=== PATIENT | male | born 1990 | race Caucasian/White ===

== ENCOUNTER 2019-10-13 19:12 | Emergency (ER) | payer OTHER, SELFPAY ==
[2019-10-13 19:15] VITALS: BP 145/85; RESP 18; TEMP 36.6; O2SAT 99; BMI 23.4
--- NOTE | 2019-10-13 19:26 | DI.RAD.S_ITS ---
PROCEDURE: XR FINGER RT MIN 2V INDICATIONS: crushed and lacerated finger with a steel bar TECHNIQUE: AP hand, 2 views of the right second finger(s) acquired. COMPARISON: None. FINDINGS: Bones: No fractures or dislocations. No suspicious bony lesions. Soft tissues: No suspicious soft tissue calcifications. There is a soft tissue defect at the distal right second digit. IMPRESSION: Soft tissue laceration without underlying bony abnormality. Dictated by: Maryjo Nesbitt M.D. on 10/13/2019 at 20:05 Approved by: Maryjo Nesbitt M.D. on 10/13/2019 at 20:06
--- NOTE | 2019-10-13 19:32 | ED.WOUNDLAC ---
HPI - Wound/Laceration General Chief Complaint: Wound/Laceration Stated Complaint: RIGHT HAND INDEX FINGER LACERATION Time Seen by Provider: 10/13/19 19:18 Source: patient Mode of arrival: Family Vehicle Limitations: no limitations History of Present Illness HPI narrative: 28-year-old [id number] male here for evaluation of an injury he sustained to the tip of his right index finger. Patient states he was working on his truck at home using a bar as a lever when he smashed his finger between the bar and another object. Have immediate pain and bleeding. Last tetanus shot was last year. Related Data Previous Rx's Medication Instructions Recorded cephalexin [Keflex] 500 mg PO BID 7 Days #14 cap 10/13/19 hydrocodone-acetaminophen [[place]] 1 tab PO Q4-6H PRN #10 tab 10/13/19 Allergies Allergy/AdvReac Type Severity Reaction Status Date / Time No Known Drug Allergies Allergy Verified 10/13/19 19:21 Review of Systems Constitutional Constitutional: Denies fever(s) Musculoskeletal Musculoskeletal: Denies tingling Comments: Right index finger pain Integumentary/Breasts Comments: Cut to the pad of the right index finger Neurologic Neurologic: Denies tingling Hematologic/Lymphatic Hematologic/Lymphatic: Denies easy bleeding and Denies easy bruising Patient History Medical History Healthy adult (Acute) Social History Smoking Status: Former smoker Smoking Status: Former smoker alcohol intake frequency: 0-2 drinks per day Alcohol type: beer Substance Use Type: marijuana Exam Initial Vital Signs Initial Vital Signs: Vital Signs Temperature 97.8 F 10/13/19 19:15 Respiratory Rate 18 10/13/19 19:15 Blood Pressure 145/85 H 10/13/19 19:15 Pulse Oximetry 99 10/13/19 19:15 Const General: cooperative and comfortable Limitations: mental status not altered HENOH Head: normal to inspection and normocephalic Cardio Pulses: radial pulses present on the right Skin Other: Patient with a 2 cm laceration to the radial aspect of the distal right index finger palmar aspect. This is very irregular in appearance. Does have an avulsion of the skin over the pad of the finger. It does not involve the dorsal aspect or the nail. His oozing. Does not extend proximal to the PIP joint. Neuro Sensory Exam: no sensory deficits noted Extrem Other: Full range of motion of the D IP and PIP joint of right index finger Psych Appearance: grossly normal and well kempt Procedures Laceration Repair Laceration 1: Site: other (Index finger) Side (If applicable): right Size (cm): 2 Description: irregular and contaminated Depth: simple, single layer Local Anesthetic: lidocaine 1% Amount of anesthesia used (mL): 4 Pre-repair: wound explored, irrigated extensively and deep structures intact Skin layer closed with: nylon Size (cm): 5-0 Number of sutures: 2 Technique: simple, interrupted Nail Trephination Time out: Yes Location (finger): right and index Sterile prep: chlorhexidine Method of drainage: needle Procedure successful: Yes Patient tolerated procedure: well and no complications Course Orders Ordered: ED Orders 10/13/19 19:26 XR finger RT min 2V Stat Discontinued Medications Hydrocodone Bitart/Acetaminophen (Vicodin 5/325 Prepack) 1 bottle MISC SEEINSTR ONE Stop: 10/13/19 20:52 Last Admin: 10/13/19 20:56 Dose: 1 bottle Documented by: PATRICE Bacitracin (Bacitracin) 1 applic TOP NOW ONE Stop: 10/13/19 20:52 Last Admin: 10/13/19 20:56 Dose: 1 applic Documented by: PATRICE Cephalexin HCl (Keflex) 500 mg PO NOW ONE Stop: 10/13/19 20:52 Last Admin: 10/13/19 20:56 Dose: 500 mg Documented by: PATRICE Lidocaine HCl (Xylocaine 1% (Pf)) 4 ml INJ NOW ONE Stop: 10/13/19 19:32 Last Admin: 10/13/19 19:57 Dose: 4 ml Documented by: AKBAR Lidocaine HCl (Xylocaine 1% (Pf)) 4 ml INJ NOW ONE Stop: 10/13/19 19:58 Last Admin: 10/13/19 19:58 Dose: 4 ml Documented by: AKBAR Vital Signs Vital signs: Vital Signs - 8 hr 10/13/19 19:15 10/13/19 21:12 Temperature 97.8 F Pulse Rate 74 Respiratory Rate 18 12 Blood Pressure 145/85 H Blood Pressure [Right Arm] 144/77 H Pulse Oximetry 99 99 MDM - Wound/Laceration Imaging Data Extremity x-ray #1: Radiologist's Impression: [address] [address] XRay Report Signed Patient: Richard Ayala CMR#: [id number] : 1990Acct:[id number] Age/Sex: 28 / MDate of Service: 10/13/19 Loc: ED Accession Number: [id number] Procedure: XR finger RT min 2V Ordering Provider: Vladislav Hernandez D.O. PROCEDURE: XR FINGER RT MIN 2V INDICATIONS: crushed and lacerated finger with a steel bar TECHNIQUE: AP hand, 2 views of the right second finger(s) acquired. COMPARISON: None. FINDINGS: Bones: No fractures or dislocations. No suspicious bony lesions. Soft tissues: No suspicious soft tissue calcifications. There is a soft tissue defect at the distal right second digit. IMPRESSION: Soft tissue laceration without underlying bony abnormality. Dictated by: Maryjo Nesbitt M.D. on 10/13/2019 at 20:05 Approved by: Maryjo Nesbitt M.D. on 10/13/2019 at 20:06 [facility] Narrative Medical decision making narrative: Patient is neurovascularly intact. No fractures on the x-ray. He is up-to-date on his tetanus. The wound was extensively cleaned with chlorhexidine and soap and water. His hands were covered in [place] and oil from working on his truck. The laceration edges were irregular. Much of the laceration was a avulsion of the pad of the index finger unfortunately I do not feel that this skin is going to survive the incident. I did talk with the patient about this. Two stitches were placed in an area where there was a laceration that I feel that there would be appropriate. I did inform him that there's the potential that the tip of his finger would be deformed. I did leave the skin flap on the area as a biologic bandage for the underlying skin. He did have a subungual hematoma which was decompressed with a needle. Given the extensive contamination of the wound he was started on antibiotics. He was given care instructions and return precautions. He expressed understanding and agreement with plan. Discharge Plan Departure Patient Disposition: Home Clinical Impression: Laceration Discharge Date/Time: 10/13/19 21:28 Instructions: DI for Laceration Repair Activity Restrictions/Additional Instructions: Expect some oozing from the area. Take your antibiotics as directed. Take the pain medication as needed as directed. After 24 hours you can take the bandage off that was placed here in the emergency department. You can wash your hands like normal but do not soak your hands and anything. The stitches do need to be removed in 7-10 days like we discussed. Return to the emergency department for any new or worsening symptoms Prescriptions: New cephalexin [Keflex] 500 mg capsule 500 mg PO BID 7 Days Qty: 14 RF: 0 hydrocodone-acetaminophen [[place]] 5-325 mg tablet 1 tab PO Q4-6H PRN (Reason: pain) Qty: 10 RF: 0
[2019-10-13] MEDS: LIDOCAINE 1% (PF) 4 ML INJ ×2 (19:57→19:58)
--- NOTE | 2019-10-13 20:11 | PC.NURSE ---
patient provided a tub of warm water [facility] surgical scrub as soap to remove as much grease off hands as possible prior to suture.
[2019-10-13] MEDS: cephALEXin 250 MG CAPSULE 500 MG PO (20:56)
[2019-10-13] MEDS: HYDROCODONE/ACET 5/325 PREPACK 1 BOTTLE MISC (20:56)
[2019-10-13] MEDS: BACITRACIN OINT 0.9 GM PCKT 1 APPLIC TOP (20:56)
[2019-10-13 21:12] VITALS: BP 144/77; PULSE 74; RESP 12; O2SAT 99
--- NOTE | 2019-10-13 21:20 | PC.NURSE ---
bacitracin,surgicel and tube gauze applied
== END 2019-10-13 21:28 | disposition home or self-care (01) ==
PROVIDERS: Emergency Provider Emergency Medicine
DX: S61.310A Laceration without foreign body of right index finger with damage to nail, initial encounter (principal); W22.8XXA Striking against or struck by other objects, initial encounter
CPT/HCPCS: 11740; 12001; 73140; 99284